=== PATIENT | male | born 1970 | race Two or more races ===

== ENCOUNTER 2021-03-13 06:00 | Day surgery (SDC) | payer OTHER | END 2021-03-13 11:30 | disposition home or self-care (01) | LOC: AMB-ENDOS 06:00 | PROVIDERS: ATTEND Surgery | DX: K29.60 Other gastritis without bleeding (principal); K29.80 Duodenitis without bleeding; K62.1 Rectal polyp; K64.8 Other hemorrhoids; Z20.822 Contact with and (suspected) exposure to COVID-19 ==